=== PATIENT | female | born 2000 | race American Indian/Alaskan Native ===

== ENCOUNTER 2022-06-30 15:49 | Outpatient (CLI) | payer MEDICAID ==
[2022-06-30 16:36] VITALS: BP 101/57
[2022-06-30] MEDS ORDERED: BICITRA ORAL LIQD 30ML PO NR (17:42)
[2022-06-30] MEDS ORDERED: LACTATED RINGERS 500 ML IV ONE (18:15)
== END 2022-06-30 18:01 | disposition home or self-care (01) ==
LOC: TRG 15:49 → APU 15:51 → TRG 18:01
PROVIDERS: ATTEND Obstetrics & Gynecology
DX: O26.893 Other specified pregnancy related conditions, third trimester (principal); R10.9 Unspecified abdominal pain; Z3A.32 32 weeks gestation of pregnancy
CPT/HCPCS: 59025

== ENCOUNTER 2022-06-30 18:00 | Emergency (ER) | payer OTHER, MEDICAID ==
[2022-06-30 20:31] VITALS: BP 116/52
[2022-06-30] MEDS ORDERED: ACETAMINOPHEN 325 MG TAB PO ONE (22:39)
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
== END 2022-07-01 00:24 | disposition home or self-care (01) ==
LOC: ED 18:00
DX: O26.893 Other specified pregnancy related conditions, third trimester (principal); M54.50 Low back pain, unspecified; Z3A.32 32 weeks gestation of pregnancy; Z88.6 Allergy status to analgesic agent; V87.7XXA Person injured in collision between other specified motor vehicles (traffic), initial encounter; Y93.89 Activity, other specified; Y92.488 Other paved roadways as the place of occurrence of the external cause; Y99.8 Other external cause status
CPT/HCPCS: 99282